=== PATIENT | female | born 1990 | race Caucasian/White ===

== ENCOUNTER 2016-07-17 02:52 | Inpatient (IN) | payer OTHER ==
[2016-07-17] MEDS ORDERED: Nalbuphine* 20 MG/ML 1 ML VIAL ONE (05:05)
[2016-07-17] MEDS ORDERED: Nalbuphine* 20 MG/ML 1 ML VIAL IV PRN (05:10)
[2016-07-17 05:46] LABS: Hematocrit 34 % (35-47); Hemoglobin 11.3 g/dl (12.0-16.0); Mean Corpuscular HGB Conc 34 g/dl (31-36); Mean Corpuscular Hemoglobin 33 pg (27-31); Mean Corpuscular Volume 97 fL (80-97); Mean Platelet Volume 9 um3 (7.4-10.4); Red Blood Count 3.45 10^6/ul (4.0-5.4); Red Cell Distribution Width 13 % (10.5-15); White Blood Count 11.6 10^3/ul (3.5-10.8)
[2016-07-17] MEDS ORDERED: OBEPIDURAL* 250 ML ONE (15:11)
[2016-07-17] MEDS ORDERED: EPHEDrine (Pressors)* 50 MG/ML VIAL IV PUSH PRN ×2 (15:48)
[2016-07-17] MEDS ORDERED: Phenylephrine IV* 40 MCG/ML 10 ML SYRINGE IV PUSH PRN ×2 (15:48)
[2016-07-17] MEDS ORDERED: Oxytocin in LR* 20 UNITS/1,000 ML BAG IVPB SCH (23:00)
[2016-07-18] MEDS ORDERED: ceFOXitin 2 GM IVPREMIX* 2 GM/50 ML BAG IVPB ONE (04:19)
[2016-07-18] MEDS ORDERED: ceFOXitin 2 GM IVPREMIX* 2 GM/50 ML BAG ONE (04:20)
[2016-07-18] MEDS ORDERED: Sodium Citrate/Citric Acid* 15 ML UDC ONE (04:20)
[2016-07-18] MEDS ORDERED: Sodium Citrate/Citric Acid* 15 ML UDC PO ONE ×2 (04:20→04:37)
[2016-07-18] MEDS ORDERED: DiMENhydriNATE IV* 50 MG/ML VIAL IV PUSH PRN ×2 (04:37→05:23)
[2016-07-18] MEDS ORDERED: Buffered Lidocaine 1% SYRIN* 3 ML/SYR SYRINGE INTRADERM ONE (04:37)
[2016-07-18] MEDS ORDERED: Scopolamine 1.5 mg* PATCH TRANSDERM PRN ×2 (04:37→05:23)
[2016-07-18] MEDS ORDERED: fentaNYL* 50 MCG/ML 2 ML VIAL (100 MCG VIAL) IV PRN (04:37)
[2016-07-18] MEDS ORDERED: PROCHLORPERAZINE INJ 5 MG/ML 2 ML VIAL IV PRN ×2 (04:37→05:23)
[2016-07-18] MEDS ORDERED: Ondansetron INJ* 2 MG/ML VIAL IV PRN ×2 (04:37→05:23)
[2016-07-18] MEDS ORDERED: fentaNYL* 50 MCG/ML 2 ML VIAL (100 MCG VIAL) ONE ×3 (04:45→06:11)
[2016-07-18] MEDS ORDERED: diPHENhydraMINE IV* 50 MG/ML 1 ml VIAL (BENADRYL) IV PRN (05:23)
[2016-07-18] MEDS ORDERED: oxyCODONE/Acetamin 5/325 MG* TAB PO PRN ×2 (05:23→21:30)
[2016-07-18] MEDS ORDERED: Naloxone* 0.4 MG/ML 1 ML VIAL IV PRN (05:23)
[2016-07-18] MEDS ORDERED: Nalbuphine* 20 MG/ML 1 ML VIAL IV PRN (05:23)
[2016-07-18] MEDS ORDERED: Morphine PF AMP (0.5MG/ML)* 5 MG/10 ML AMP ONE (05:24)
[2016-07-18] MEDS ORDERED: PROCHLORPERAZINE INJ 5 MG/ML 2 ML VIAL ONE (05:41)
[2016-07-18] MEDS ORDERED: Meperidine SYRINGE* 50 MG/ML ONE (05:44)
[2016-07-18] MEDS ORDERED: DiMENhydriNATE IV* 50 MG/ML VIAL ONE (05:46)
[2016-07-18] MEDS ORDERED: Midazolam* 1 MG/ML 2 ML VIAL (2 MG) ONE ×3 (05:49→06:08)
[2016-07-18] MEDS ORDERED: OXYTOCIN* 10 UNITS/ML 1 ML VIAL ONE (06:02)
[2016-07-18] MEDS ORDERED: Acetaminophen TAB* 325 MG PO PRN (06:10)
[2016-07-18] MEDS ORDERED: Dibucaine 1% 28.35 GM TUBE PR PRN (06:10)
[2016-07-18] MEDS ORDERED: Glycerin ADULT SUPP PR PRN (06:10)
[2016-07-18] MEDS ORDERED: Witch Hazel PAD* JAR TOPICAL PRN (06:10)
[2016-07-18] MEDS: Docusate CAP* 100 MG PO SCH ×3 (08:39→21:29)
[2016-07-18] MEDS: Simethicone CHEW TAB* 80 MG PO SCH ×4 (08:39→21:29)
[2016-07-18] MEDS: Ibuprofen TAB* 600 MG PO PRN ×2 (12:36→18:10)
[2016-07-18] MEDS ORDERED: Zolpidem TAB* 5 MG PO PRN (21:30)
[2016-07-19] MEDS: Ibuprofen TAB* 600 MG PO PRN ×4 (02:03→20:50)
[2016-07-19 06:05] LABS: Hematocrit 29 % (35-47); Hemoglobin 9.5 g/dl (12.0-16.0); Mean Corpuscular HGB Conc 33 g/dl (31-36); Mean Corpuscular Hemoglobin 32 pg (27-31); Mean Corpuscular Volume 97 fL (80-97); Mean Platelet Volume 8 um3 (7.4-10.4); Red Blood Count 2.94 10^6/ul (4.0-5.4); Red Cell Distribution Width 13 % (10.5-15); White Blood Count 14.4 10^3/ul (3.5-10.8)
[2016-07-19] MEDS: Ferrous Gluconate TAB* 324 MG TAB PO SCH ×2 (08:39→20:50)
[2016-07-19] MEDS: Simethicone CHEW TAB* 80 MG PO SCH ×4 (08:40→20:51)
[2016-07-19] MEDS: Docusate CAP* 100 MG PO SCH ×3 (08:40→20:50)
--- NOTE | 2016-07-19 10:02 | PTEDU ---
Patient Name: CHIQUI MACDONALD RENAECHIQUI selected video: Never Ever Shake a Baby to view on 07/19/2016 at 10:02:24 AM from [id number]
[2016-07-19] MEDS: oxyCODONE/Acetamin 5/325 MG* TAB PO PRN ×2 (16:16→20:51)
--- NOTE | 2016-07-19 20:29 | PTEDU ---
Patient Name: CHIQUI MACDONALD CHIQUI MACDONALD selected video: Follow Me Mum: [employer] [facility] [facility] [employer] to view on 2016 at 8:29:11 PM [id number]
[2016-07-20] MEDS: Ibuprofen TAB* 600 MG PO PRN ×4 (05:16→22:18)
[2016-07-20] MEDS: oxyCODONE/Acetamin 5/325 MG* TAB PO PRN ×4 (05:17→22:19)
[2016-07-20] MEDS: Docusate CAP* 100 MG PO SCH ×3 (09:07→20:36)
[2016-07-20] MEDS: Ferrous Gluconate TAB* 324 MG TAB PO SCH ×2 (09:08→20:36)
[2016-07-20] MEDS: Simethicone CHEW TAB* 80 MG PO SCH ×4 (09:08→20:36)
--- NOTE | 2016-07-20 12:22 | OP ---
DATE OF OPERATION: 07/18/16 - ROOM #[id number]-102 DATE OF : 88 SURGEON: Carrington Ruvalcaba MD TENTMAKER: Olvin Milner CNM ANESTHESIA: Epidural. PRE-OPERATIVE DIAGNOSIS: Intrauterine at 38 weeks with arrest of dilation in labor. POST-OPERATIVE DIAGNOSIS: Intrauterine at 38 weeks with arrest of dilation in labor. OPERATIVE PROCEDURE: Primary low transverse section. ESTIMATED BLOOD LOSS: 600 cc. URINE OUTPUT: Clear. IV FLUIDS: She received 2 L of IV crystalloid fluid. FINDINGS: Delivery of a viable male with a nuchal cord x1 over clear fluid, 's were 9 and 9, weight 7 pounds 11 ounces. The placenta, uterus, adnexa, bowel, and bladder were all within normal limits. DESCRIPTION OF PROCEDURE: The patient was taken to the operating room, where she was identified. She was placed on the operating table, where an epidural anesthetic was obtained without difficulty. She was then placed in the supine position with a leftward tilt, prepped and draped in normal sterile fashion. A Pfannenstiel skin incision was made with a knife and carried through to the underlying layer of fascia. The fascia was nicked in the midline and extended laterally with curved Corea scissors. The fascia was grasped superiorly and inferiorly with Jose G clamps and dissected off sharply from the rectus muscle. The rectus muscle was in the midline bluntly. The peritoneum was then identified, grasped with pickups, entered sharply with Metzenbaum scissors. The peritoneum was then extended laterally bluntly. A bladder blade was inserted into the patient's abdomen. A bladder flap was created using Metzenbaum scissors over which a bladder blade was then re-inserted. A low transverse uterine incision was made with the knife and extended laterally with bandage scissors. The 's head was grasped and delivered atraumatically. The nose and mouth were suctioned at the incision site. The rest of the ' s body was then delivered after a nuchal cord was reduced x1. The cord was clamped and cut and the was handed off to awaiting excellence consultant. Cord bloods were obtained. The placenta was removed manually. The uterus was then exteriorized, cleared of all clot and debris using moist laparotomy sponges. The uterine incision was then closed using 0 Polysorb suture in a running locked fashion with a second imbricating layer of 0 Polysorb suture with good hemostasis noted at the uterine incision. At this point, the uterus was then returned to the patient's abdomen. The gutters were then cleared of all clot and debris using moist laparotomy sponges and irrigation fluid. Irrigation fluid was suctioned. The sponges were removed from the patient's abdomen as well as all the instrument. The peritoneum was then closed using 3-0 Polysorb suture in a running fashion. The fascia was closed using 0 Polysorb suture in a running fashion and the skin was closed with 4-0 Monocryl subcuticular stitch. The patient tolerated the procedure well. Sponge, lap, and needle counts were correct x2. She was then transferred to recovery room area in stable condition. CC: Olvin Milner CNM, [facility] [facility]* [id number]/[facility] #: [id number] MTDD
[2016-07-20] MEDS: OBEPIDURAL* 250 ML EPIDURAL SCH (19:17)
[2016-07-21] MEDS: Ibuprofen TAB* 600 MG PO PRN ×2 (04:19→10:50)
[2016-07-21] MEDS: oxyCODONE/Acetamin 5/325 MG* TAB PO PRN ×2 (04:20→10:49)
[2016-07-21] MEDS ORDERED: Scopolomine PATCH Remove* 1 NOTE MISC PATCH OFF ONE (04:37)
[2016-07-21] MEDS ORDERED: Scopolomine PATCH Remove* 1 NOTE MISC PATCH OFF PRN (05:23)
[2016-07-21] MEDS: Ferrous Gluconate TAB* 324 MG TAB PO SCH (07:48)
[2016-07-21] MEDS: Docusate CAP* 100 MG PO SCH (07:49)
[2016-07-21] MEDS: Simethicone CHEW TAB* 80 MG PO SCH (07:49)
[2016-07-21 08:38] VITALS: BP 122/68
== END 2016-07-21 13:46 | disposition home or self-care (01) | DRG 766 ==
LOC: MCHOBOUT 02:52 → MCHOB 03:56
PROVIDERS: ADMIT Midwife; ATTEND Obstetrics & Gynecology
PROC: 10907ZC Drainage of Amniotic Fluid, Therapeutic from Products of Conception, Via Natural or Artificial Opening (ICD-10-PCS; 2016-07-18)
PROC: 10D00Z1 Extraction of Products of Conception, Low, Open Approach (ICD-10-PCS; principal; 2016-07-18 11:58)
DX: O62.0 Primary inadequate contractions (principal); O24.429 Gestational diabetes mellitus in childbirth, unspecified control; D64.9 Anemia, unspecified; O99.02 Anemia complicating childbirth; Z3A.38 38 weeks gestation of pregnancy; Z37.0 Single live birth
CPT/HCPCS: 36415; 85025; 86850; 86900; 86901; A9270-GY; J0694; J0780; J1240; J2250; J2300; J2590; J3010